=== PATIENT | female | born 1940 | race Caucasian/White ===

== ENCOUNTER 2017-04-24 11:04 | Outpatient (CLI) | payer MEDICARE ==
--- NOTE | 2017-04-24 11:34 | RAD ---
THREE VIEWS LEFT ANKLE: Indication: Left ankle pain. FINDINGS: No acute fracture or dislocation is evident. Ankle mortise is preserved. IMPRESSION: No acute osseous abnormalities. POS: [facility]
--- NOTE | 2017-04-24 13:42 | RAD ---
THREE VIEWS OF THE LEFT FOOT: INDICATIONS: Left foot pain. FINDINGS: There is post surgical changes of partial osteectomy and osteotomy involving the great toe metatarsal . 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 Lisfranc alignment is preserved. No acute fract ure or subluxation is evident. IMPRESSION: No acute osseous abnormality. POS: [facility]
== END 2017-04-24 11:05 | disposition home or self-care (01) ==
LOC: RAD-FRANK 11:04
PROVIDERS: ATTEND Nurse Practitioner Family
DX: M25.572 Pain in left ankle and joints of left foot (principal); M79.675 Pain in left toe(s)

== ENCOUNTER 2018-12-24 11:48 | Outpatient (CLI) | payer MEDICARE ==
--- NOTE | 2018-12-24 12:37 | RAD ---
LUMBAR SPINE TWO VIEWS: 12/24/2018 HISTORY: Low back pain. Osteoarthritis. COMPARISON: None. FINDINGS: There is anterolisthesis of L4 on L5 measuring 1.1 cm. There is facet hypertrophy at L4-L5 as well. At L5-S1 there is anterolisthesis measuring approximately 9 mm with associated facet hypertrophy as w ell. There is lumbar spine dextroscoliosis. There is mild disk space narrowing at L4-L5 and at L5-S1. No a cute osseous abnormality. IMPRESSION: Multilevel lower lumbar spine degenerative change as detailed above. POS: [facility]
--- NOTE | 2018-12-24 12:40 | RAD ---
TWO VIEWS OF THE CHEST: DATE: 12/24/2018. COMPARISON: None. HISTORY: Pain. Hypertension. FINDINGS: There is no pneumothorax, pleural fluid, focal consolidation, or alveolar edema. There is atheroscle rotic calcification in the aortic arch. IMPRESSION: No acute findings. POS: [facility]
== END 2018-12-24 11:49 | disposition home or self-care (01) ==
LOC: BICRAD 11:48
PROVIDERS: ATTEND Internal Medicine Nephrology
DX: I13.10 Hypertensive heart and chronic kidney disease without heart failure, with stage 1 through stage 4 chronic kidney disease, or unspecified chronic kidney disease (principal); M19.90 Unspecified osteoarthritis, unspecified site; I25.10 Atherosclerotic heart disease of native coronary artery without angina pectoris; M10.9 Gout, unspecified; N18.9 Chronic kidney disease, unspecified; I73.9 Peripheral vascular disease, unspecified; M47.816 Spondylosis without myelopathy or radiculopathy, lumbar region
CPT/HCPCS: 71046; 72100

== ENCOUNTER 2019-05-08 08:00 | Outpatient (CLI) | payer MEDICARE ==
--- NOTE | 2019-05-08 09:03 | ULT ---
BILATERAL RENAL ULTRASOUND WITH DOPPLER: HISTORY: Chronic renal failure. FINDINGS: The right kidney measures 10 cm in length and the left kidney measures 11 cm in length. Small bilate ral renal cysts are present. No hydronephrosis identified. The urinary bladder is incompletely dist ended with a volume of 34 cc. The peak systolic velocity in the right renal artery measures 94 cm/s and in the left renal artery me asures 91 cm/s with a renal artery to aortic ratio of 0.79 on the right and 0.77 on the left. The re sistive indices measure 0.66 on the right and 0.67 on the left. IMPRESSION: 1. Bilateral small renal cysts. 2. No evidence of hemodynamically significant renal artery stenosis. POS: [facility]
== END 2019-05-08 08:01 | disposition home or self-care (01) ==
LOC: BICULT 08:00
PROVIDERS: ATTEND Internal Medicine Nephrology
DX: I13.10 Hypertensive heart and chronic kidney disease without heart failure, with stage 1 through stage 4 chronic kidney disease, or unspecified chronic kidney disease (principal); M19.90 Unspecified osteoarthritis, unspecified site; N18.9 Chronic kidney disease, unspecified; I73.9 Peripheral vascular disease, unspecified; M10.9 Gout, unspecified
CPT/HCPCS: 76770; 93975

== ENCOUNTER 2021-07-01 08:39 | Outpatient (CLI) | payer MEDICARE | END 2021-07-01 08:40 | disposition home or self-care (01) | LOC: RAD-FRANK 08:39 | PROVIDERS: ATTEND Nurse Practitioner Family | DX: M79.641 Pain in right hand (principal); M19.041 Primary osteoarthritis, right hand ==

== ENCOUNTER 2021-10-17 14:42 | Outpatient (CLI) | payer MEDICARE | END 2021-10-17 14:43 | disposition home or self-care (01) | LOC: RAD-FRANK 14:42 | PROVIDERS: ATTEND Nurse Practitioner Family | DX: M54.50 Low back pain, unspecified (principal); M47.816 Spondylosis without myelopathy or radiculopathy, lumbar region; M41.9 Scoliosis, unspecified | CPT/HCPCS: 72100 ==

== ENCOUNTER 2024-04-17 09:29 | Outpatient (CLI) | payer MEDICARE | END 2024-04-17 09:30 | disposition home or self-care (01) | LOC: BICMRI 09:29 | PROVIDERS: ATTEND Nurse Practitioner Family | DX: R42 Dizziness and giddiness (principal); R90.82 White matter disease, unspecified | CPT/HCPCS: 36415; 70553; 82565 ==

== ENCOUNTER 2025-01-15 13:23 | Outpatient (CLI) | payer MEDICARE ==
[2025-01-15 13:44] LABS: Estimated GFR - POC 41.0
[2025-01-15] MEDS ORDERED: Iopamidol 370 76% 100 ML VIAL ONE (14:49)
== END 2025-01-15 13:24 | disposition home or self-care (01) ==
LOC: CT 13:23
PROVIDERS: ATTEND Internal Medicine Cardiovascular Disease
DX: R55 Syncope and collapse (principal)
CPT/HCPCS: 36415; 70498; 82565